=== PATIENT | male | born 1980 | race Caucasian/White ===

== ENCOUNTER 2017-08-28 16:43 | Emergency (ER) | payer OTHER ==
[~2017-08-28] VITALS: Ht 175.2 cm; Wt 83.0 kg
[~2017-08-28 16:43] MED LIST: ACYCLOVIR800 MG PO; CYMBALTA60 MG PO; DOXYCYCLINE MO100 MG PO; MOTRIN800 MG PO
[2017-08-28] MEDS ORDERED: ZYRTEC10 MG PO (18:06)
[2017-08-28] MEDS ORDERED: PREDNISONE20 M1 PO (18:06)
[2017-08-28] MEDS ORDERED: FLONASE ALLERG9.9 ML NAS (18:06)
== END 2017-08-28 18:10 | disposition home or self-care (01) ==
LOC: ED 16:43
DX: B34.9 Viral infection, unspecified (principal); F17.200 Nicotine dependence, unspecified, uncomplicated; Z79.899 Other long term (current) drug therapy

== ENCOUNTER 2017-12-26 17:09 | Emergency (ER) | payer OTHER ==
[~2017-12-26] VITALS: Ht 175.2 cm; Wt 81.6 kg
[~2017-12-26 17:09] MED LIST changes: +FLONASE ALLERG9.9 ML NAS; +PREDNISONE20 M1 PO; +ZYRTEC10 MG PO
[2017-12-26] MEDS ORDERED: IBUPROFEN600 MG PO (17:29)
[2017-12-26] MEDS ORDERED: DOXYCYCLINE100 M3 PO (17:29)
== END 2017-12-26 17:49 | disposition home or self-care (01) ==
LOC: ED 17:09
DX: S80.862A Insect bite (nonvenomous), left lower leg, initial encounter (principal); Z79.899 Other long term (current) drug therapy; W57.XXXA Bitten or stung by nonvenomous insect and other nonvenomous arthropods, initial encounter; Y93.89 Activity, other specified; Y92.69 Other specified industrial and construction area as the place of occurrence of the external cause; Y99.8 Other external cause status

== ENCOUNTER 2020-12-15 16:43 | Emergency (ER) | payer SELFPAY ==
[~2020-12-15 16:43] MED LIST changes: +DOXYCYCLINE100 M3 PO; +IBUPROFEN600 MG PO; +PREDNISONE10 MG PO
[2020-12-15 17:02] LABS: BASO % 0.4 % (0.0-1.0); EOS % 0.8 % (1.0-4.0); HEMATOCRIT 41.7 % (42.0-52.0); LYMPH % 37.2 % (27.0-41.0); MEAN CORPUSCULAR HGB 31.9 pg (27.0-31.0); MEAN PLATELET VOLUME 10.3 fl (9.6-12.3); MONO # 0.6 10*3/uL (0.1-1.0); MONO % 10.6 % (3.0-9.0); NEUT # 2.7 10*3/uL (2.3-7.9); NEUT % 50.8 % (47.0-73.0); PLATELET COUNT AUTOMATED 252 10*3/uL (130-400); RED BLOOD COUNT 4.58 10*6/uL (4.50-5.90); RED CELL DISTRI WIDTH 12.7 % (0-14.5); WHITE BLOOD COUNT 5.3 10*3/uL (4.8-10.8)
[2020-12-15 18:00] LABS: ALBUMIN 4.3 gm/dl (3.1-4.5); ALKALINE PHOSPHATASE 81 U/L (45-117); BUN 15 mg/dl (7-24); CHLORIDE 108 mmol/L (98-107); CREATININE 0.82 mg/dL (0.70-1.30); POTASSIUM 3.3 mmol/L (3.5-5.1); SGOT/AST 30 IU/L (3-35); SGPT/ALT 29 U/L (12-78); SODIUM 136 mmol/L (136-145); TOTAL PROTEIN 7.6 gm/dL (6.4-8.2)
[2020-12-15 18:05] LABS: TROPONIN I < 0.015 ng/ml (<0.045)
== END 2020-12-15 19:30 | disposition left against medical advice (07) ==
LOC: ED 16:43
PROVIDERS: Emergency Medicine
DX: R07.89 Other chest pain (principal); F17.200 Nicotine dependence, unspecified, uncomplicated; F12.90 Cannabis use, unspecified, uncomplicated; Z98.890 Other specified postprocedural states; Z79.899 Other long term (current) drug therapy

== ENCOUNTER → 2021-10-13 | Outpatient (CLI) | payer BC | END | disposition home or self-care (01) | LOC: WOUNDCARE 01:15 | PROVIDERS: ATTEND Nurse Practitioner Family | DX: T22.312A Burn of third degree of left forearm, initial encounter (principal); F17.200 Nicotine dependence, unspecified, uncomplicated; X08.8XXA Exposure to other specified smoke, fire and flames, initial encounter; Y93.89 Activity, other specified; Y92.89 Other specified places as the place of occurrence of the external cause; Y99.8 Other external cause status ==

== ENCOUNTER → 2021-10-19 | Outpatient (CLI) | payer BC | LOC: WOUNDCARE 10-18 13:02 | PROVIDERS: ATTEND Nurse Practitioner Family | DX: T22.31 Burn of third degree of forearm (principal); T31.0 Burns involving less than 10% of body surface; F17.200 Nicotine dependence, unspecified, uncomplicated; X08.8XXD Exposure to other specified smoke, fire and flames, subsequent encounter ==

== ENCOUNTER 2022-08-24 12:40 | Emergency (ER) | payer SELFPAY ==
[~2022-08-24] VITALS: Wt 81.6 kg
== END 2022-08-24 14:04 | disposition home or self-care (01) ==
LOC: ED 12:40
DX: S01.112A Laceration without foreign body of left eyelid and periocular area, initial encounter (principal); W20.8XXA Other cause of strike by thrown, projected or falling object, initial encounter; Y93.89 Activity, other specified; Y92.89 Other specified places as the place of occurrence of the external cause; Y99.8 Other external cause status

== ENCOUNTER → 2024-01-24 | Outpatient (CLI) | payer OTHER | END | disposition home or self-care (01) | LOC: MRI 08:52 | PROVIDERS: ATTEND Nurse Practitioner Family | DX: M51.37 Other intervertebral disc degeneration, lumbosacral region (principal) ==

== ENCOUNTER 2024-06-24 14:31 | Emergency (ER) | payer OTHER ==
[~2024-06-24] VITALS: Ht 175.2 cm; Wt 83.9 kg
[2024-06-24 15:31] LABS: BASO % 0.6 % (0.0-1.0); EOS # 0.1 10*3/uL (0.0-0.4); EOS % 1.1 % (1.0-4.0); HEMATOCRIT 44.3 % (42.0-52.0); MEAN CELL VOLUME 94.5 fl (80.0-94.0); MEAN CORPUSCULAR HGB 32.2 pg (27.0-31.0); MEAN CORPUSCULAR HGB CONC 34.1 g/dl (33.0-37.0); MEAN PLATELET VOLUME 10.2 fl (9.6-12.3); MONO # 0.5 10*3/uL (0.1-1.0); MONO % 7.6 % (3.0-9.0); NEUT # 3.7 10*3/uL (2.3-7.9); NEUT % 59.5 % (47.0-73.0); PLATELET COUNT AUTOMATED 245 10*3/uL (130-400); RED BLOOD COUNT 4.69 10*6/uL (4.50-5.90); RED CELL DISTRI WIDTH 12.9 % (0-14.5); WHITE BLOOD COUNT 6.2 10*3/uL (4.8-10.8)
[2024-06-24 15:45] LABS: BILIRUBIN Negative (Negative); BLOOD Negative (Negative); CLARITY Clear (Clear); COLOR Yellow (Yellow); GLUCOSE Negative (Negative); KETONE Trace (Negative); LEUKO ESTERASE Negative (Negative); NITRITE Negative (Negative)
[2024-06-24 15:56] LABS: ALKALINE PHOSPHATASE 97 U/L (46-116); BUN 9 mg/dl (9-23); CHLORIDE 107 mmol/L (98-107); LIPASE 27 U/L (12-53); POTASSIUM 3.6 mmol/L (3.4-5.1); SGPT/ALT 24 U/L (5-49); TOTAL PROTEIN 7.3 gm/dL (6.0-8.0)
[2024-06-24 16:25] LABS: MUCOUS 1+; WBC 0-2 wbc/hpf (0-5)
[2024-06-24] MEDS ORDERED: SEPTDS PO (16:45)
[2024-06-24] MEDS ORDERED: METHOCARBAMOL500 M1 PO (16:45)
== END 2024-06-24 17:33 | disposition home or self-care (01) ==
LOC: ED 14:31
PROVIDERS: Internal Medicine
DX: N39.0 Urinary tract infection, site not specified (principal); M62.830 Muscle spasm of back; F32.A Depression, unspecified; E16.2 Hypoglycemia, unspecified; F12.10 Cannabis abuse, uncomplicated; F17.210 Nicotine dependence, cigarettes, uncomplicated; Z98.890 Other specified postprocedural states